=== PATIENT | female | born 1950 | race Caucasian/White ===

== ENCOUNTER 2020-05-26 09:27 | Emergency (ER) | payer MEDICARE, BC ==
[2020-05-26 10:32] LABS: #Basophils 0.1 thou/uL (0.0-0.2); #Eosinphils 0.1 thou/uL (0.0-0.7); #Lymphocytes 2.2 thou/uL (1.20-3.40); #Monocytes 1.1 thou/uL (0.11-0.59); #Neutrophils 7.2 thou/uL (1.40-6.50); %Basophils 0.6 % (0.0-1.0); %Eosinophils 1.1 % (0.0-10.0); %Lymphocytes 20.5 % (21.0-51.0); %Monocytes 9.9 % (0.0-10.0); Hemoglobin 14.6 g/dL (12.0-16.0); Mean Corpuscular HGB CONC 32.9 g/dL (32.0-36.0); Mean Corpuscular Hemoglobin 31.8 pg (27.0-31.0); Mean Corpuscular Volume 96.6 fL (78.0-98.0); Mean Platelet Volume 8.2 fL (7.4-10.4); Platelet Count 276 thou/uL (130-400); RBC Distribution Width 12.2 % (11.5-14.5); White Blood Cell (WBC) Count 10.7 thou/uL (4.8-10.8)
[2020-05-26 11:03] LABS: ALT (SGPT) 23 U/L (8-55); AST (SGOT) 18 U/L (5-34); Albumin 4.1 g/dL (3.4-4.8); Alkaline Phosphatase 77 U/L (40-110); Anion Gap 15 mmol/L (10-20); BUN (Urea Nitrogen) 33 mg/dL (9.8-20.1); Bilirubin, Total 0.6 mg/dL (0.2-1.2); Calc. Creatinine Clearance 0 mL/min (70-130); Carbon Dioxide 26 mmol/L (23-31); Chloride 102 mmol/L (98-107); Globulin 3.5 g/dL (2.4-3.5); Glucose 97 mg/dL (80-115); Potassium 3.8 mmol/L (3.5-5.1); Protein, Total 7.6 g/dL (6.0-8.3); Sodium 139 mmol/L (136-145)
== END 2020-05-26 14:00 | disposition home or self-care (01) ==
LOC: ERS 09:27
DX: L03.313 Cellulitis of chest wall (principal); I10 Essential (primary) hypertension; Z85.3 Personal history of malignant neoplasm of breast
CPT/HCPCS: 36415; 80053; 85025; 99283

== ENCOUNTER 2023-07-01 11:54 | Inpatient (IN) | payer MEDICARE, BC ==
[2023-07-01 13:44] LABS: #Basophils 0.1 thou/uL (0.0-0.2); #Eosinphils 0.1 thou/uL (0.0-0.7); #Neutrophils 8.2 thou/uL (1.40-6.50); %Basophils 1.1 % (0.0-1.0); %Eosinophils 0.9 % (0.0-10.0); %Lymphocytes 15.9 % (21.0-51.0); %Monocytes 9.1 % (0.0-10.0); %Neutrophils 71.7 % (42.0-75.0); Hematocrit 45.5 % (36.0-47.0); Hemoglobin 14.7 g/dL (12.0-16.0); Mean Corpuscular HGB CONC 32.3 g/dL (32.0-36.0); Mean Corpuscular Hemoglobin 30.4 pg (27.0-31.0); Mean Corpuscular Volume 94.2 fl (78.0-98.0); Mean Platelet Volume 10.5 fL (7.4-10.4); Platelet Count 206 10x3/uL (130-400); RBC Distribution Width 16.5 % (11.5-14.5); Red Blood Cell (RBC) Count 4.83 mill/uL (4.20-5.40); White Blood Cell (WBC) Count 11.4 10x3/uL (4.8-10.8)
[2023-07-01 14:17] LABS: Troponin I 0.011 ng/mL (< 0.028)
[2023-07-01 14:25] LABS: SARS-CoV-2 NAA Rapid Test Not Detected (NotDetected)
[2023-07-01 15:33] LABS: Bacteria/HPF 3+ HPF (None Seen); Bilirubin 1+ (Negative); Blood, Urine Negative (Negative); CAUTI Indications for Culture Alt mental st,lethar; Calcium Oxalate Crystals 3+ HPF (None Seen); Clarity Turbid (Clear); Glucose, Urine (Dipstick) Normal (Negative); Ketone, Urine Trace mg/dL (Negative); Leukocyte Negative Leu/uL (Negative); Nitrite 1+ (Negative); Protein, Urine (Dipstick) 10 mg/dL (Neg-Trace); RBC/HPF 0-3 HPF (0-3)
[2023-07-01 15:35] LABS: Urine Culture Reflex No No
[2023-07-01 16:08] LABS: Albumin 2.8 g/dL (3.4-4.8)
[2023-07-01 16:09] LABS: Chloride 100 mmol/L (98-107); Potassium 5.1 mmol/L (3.5-5.1); Sodium 129 mmol/L (136-145)
[2023-07-01 16:10] LABS: Glucose 63 mg/dL (83-110)
[2023-07-01 16:11] LABS: Globulin 6.6 g/dL (2.4-3.5); Protein, Total 9.4 g/dL (5.8-8.1)
[2023-07-01 16:12] LABS: Anion Gap 25 mmol/L (10-20); Bilirubin, Total 5.5 mg/dL (0.2-1.2)
[2023-07-01 16:13] LABS: Alkaline Phosphatase 738 U/L (40-110)
[2023-07-01 16:14] LABS: Calc. Creatinine Clearance 0 mL/min (70-130); Estimated GFR 28
[2023-07-01 16:15] LABS: BUN (Urea Nitrogen) 38 mg/dL (9.8-20.1)
[2023-07-01 16:16] LABS: ALT (SGPT) 259 U/L (8-55); AST (SGOT) 369 U/L (5-34); Carbon Dioxide 9 mmol/L (23-31); Critical Call Chemistry ERS.JAN @1616
[2023-07-01 16:17] LABS: Lipase 152 U/L (8-78)
[2023-07-01 18:39] LABS: Lactic Acid 3.5 mmol/L (0.5-2.2)
[2023-07-01] MEDS ORDERED: Ondansetron ODT 4 MG TAB PO PRN (18:52)
[2023-07-01 20:49] LABS: Albumin 3.1 g/dL (3.4-4.8); Anion Gap 16 mmol/L (10-20); BUN (Urea Nitrogen) 42 mg/dL (9.8-20.1); Calc. Creatinine Clearance 0 mL/min (70-130); Carbon Dioxide 20 mmol/L (23-31); Chloride 99 mmol/L (98-107); Estimated GFR 29; Glucose 71 mg/dL (83-110); Phosphorus 3.2 mg/dL (2.3-4.7); Potassium 4.5 mmol/L (3.5-5.1); Sodium 130 mmol/L (136-145)
[2023-07-01] MEDS: Sodium Chloride 0.9% 1,000 ML IV SCH (21:16)
[2023-07-01 21:40] LABS: Phosphorus 3.2 mg/dL (2.3-4.7); Salicylate Less than 8.0 mg/dL (15.0-30.0)
[2023-07-01] MEDS: Acetaminophen 325 MG TAB PO PRN (21:55)
[2023-07-01 22:11] LABS: Creatinine, Urine 141.51 mg/dL (47-110)
[2023-07-01 22:28] LABS: Actual Bicarbonate (HCO3v) 19.7 mEq/L (22-28); Base Excess -5.2 mEq/L (-2.0 to +3.0); Calcium, Ionized (venous) 1.45 mmol/L (1.16-1.32); Chloride (VBG) 99 mmol/L (98-106); Hematocrit-VBG 41 % (36.0-47.0); Hemoglobin (Hb) 13.8 g/dL (11.7-16.1); Potassium (VBG) 4.77 mmol/L (3.70-5.30); Sodium 134 mmol/L (133-146); pH (venous) 7.351 (7.32-7.43)
[2023-07-02 02:07] LABS: #Basophils 0.1 thou/uL (0.0-0.2); #Eosinphils 0.1 thou/uL (0.0-0.7); #Neutrophils 5.3 thou/uL (1.40-6.50); %Basophils 0.9 % (0.0-1.0); %Eosinophils 0.8 % (0.0-10.0); %Monocytes 12.7 % (0.0-10.0); %Neutrophils 66.8 % (42.0-75.0); Mean Corpuscular HGB CONC 33.7 g/dL (32.0-36.0); Mean Corpuscular Hemoglobin 31.1 pg (27.0-31.0); Mean Corpuscular Volume 92.2 fl (78.0-98.0); Mean Platelet Volume 10.6 fL (7.4-10.4); RBC Distribution Width 16.1 % (11.5-14.5); White Blood Cell (WBC) Count 7.9 10x3/uL (4.8-10.8)
[2023-07-02 02:09] LABS: Hematocrit 34.1 % (36.0-47.0); Hemoglobin 11.5 g/dL (12.0-16.0); Platelet Count 142 10x3/uL (130-400)
[2023-07-02 02:25] LABS: Albumin 2.5 g/dL (3.4-4.8); Anion Gap 18 mmol/L (10-20); BUN (Urea Nitrogen) 41 mg/dL (9.8-20.1); BUN/Creatinine Ratio 22.78; Calc. Creatinine Clearance 0 mL/min (70-130); Calcium 11.7 mg/dL (7.8-10.44); Carbon Dioxide 15 mmol/L (23-31); Chloride 102 mmol/L (98-107); Estimated GFR 29; Glucose 67 mg/dL (83-110); Phosphorus 3.2 mg/dL (2.3-4.7); Potassium 4.6 mmol/L (3.5-5.1); Sodium 130 mmol/L (136-145)
[2023-07-02 02:31] LABS: HBSAg Index 0.21 S/CO (0-0.99); Hep B Surf Ag Non-Reactive S/CO (NonReactive); Hep C IgG Ab Non-Reactive S/CO (NonReactive); Hep C Index 0.13 S/CO (0-0.79)
[2023-07-02 02:32] LABS: Hep A IgM AB Non-Reactive S/CO (NonReactive); Hep A IgM S/CO 0.13 S/CO (0-0.79)
[2023-07-02 02:33] LABS: HBCM Index 0.18 S/CO (0-0.79); Hepatitis B Core IgM Abs Non-Reactive S/CO (NonReactive)
[2023-07-02 02:34] LABS: HIV (1/2) Antibody/Antigen Non-Reactive (NonReactive); HIV 1/2 INDEX 0.17 S/CO (<1.00)
[2023-07-02 03:45] LABS: ALT (SGPT) 216 U/L (8-55); AST (SGOT) 320 U/L (5-34); Albumin 2.6 g/dL (3.4-4.8); Alkaline Phosphatase 647 U/L (40-110); Anion Gap 20 mmol/L (10-20); BUN (Urea Nitrogen) 40 mg/dL (9.8-20.1); Calc. Creatinine Clearance 0 mL/min (70-130); Calcium 11.5 mg/dL (7.8-10.44); Carbon Dioxide 14 mmol/L (23-31); Chloride 102 mmol/L (98-107); Estimated GFR 30; Globulin 5.1 g/dL (2.4-3.5); Glucose 66 mg/dL (83-110); Potassium 4.6 mmol/L (3.5-5.1); Protein, Total 7.7 g/dL (5.8-8.1); Sodium 131 mmol/L (136-145)
[2023-07-02] MEDS: Sodium Chloride 0.9% 1,000 ML IV SCH ×3 (05:45→20:52)
[2023-07-02] MEDS ORDERED: FLU VACC QS2023(65UP)/MF59C/PF 60 MCG/0.5 ML SYRINGE IM ONE (09:00)
[2023-07-02] MEDS: Enoxaparin 40 MG (0.4 mL) SYRINGE SC SCH (09:18)
[2023-07-02 10:32] LABS: Lactic Acid 2.7 mmol/L (0.5-2.2)
[2023-07-02 11:06] VITALS: BMI 29.7
[2023-07-02 11:32] LABS: Syphilis Antibody Nonreactive (Nonreactive); Syphilis Antibody Index 0.25 S/CO (<1.00 Non-Reactive)
[2023-07-02 18:17] LABS: Lactic Acid 2.8 mmol/L (0.5-2.2)
[2023-07-02] MEDS: Acetaminophen 325 MG TAB PO PRN (20:58)
[2023-07-03] MEDS: Sodium Chloride 0.9% 1,000 ML IV SCH ×4 (05:38→23:59)
[2023-07-03 06:08] LABS: #Basophils 0.1 thou/uL (0.0-0.2); #Eosinphils 0.2 thou/uL (0.0-0.7); #Monocytes 0.8 thou/uL (0.11-0.59); #Neutrophils 3.6 thou/uL (1.40-6.50); %Eosinophils 2.7 % (0.0-10.0); %Lymphocytes 20.4 % (21.0-51.0); %Monocytes 13.7 % (0.0-10.0); %Neutrophils 60.9 % (42.0-75.0); Hematocrit 32.1 % (36.0-47.0); Hemoglobin 10.8 g/dL (12.0-16.0); Mean Corpuscular HGB CONC 33.6 g/dL (32.0-36.0); Mean Corpuscular Hemoglobin 30.9 pg (27.0-31.0); Platelet Count 137 10x3/uL (130-400); RBC Distribution Width 16.5 % (11.5-14.5); Red Blood Cell (RBC) Count 3.49 mill/uL (4.20-5.40)
[2023-07-03 06:33] LABS: INR-International Normal Ratio 1.2; Prothrombin Time 15.1 sec (12.0-14.7)
[2023-07-03 06:38] LABS: ALT (SGPT) 200 U/L (8-55); AST (SGOT) 317 U/L (5-34); Albumin 2.4 g/dL (3.4-4.8); Alkaline Phosphatase 672 U/L (40-110); Anion Gap 14 mmol/L (10-20); BUN (Urea Nitrogen) 35 mg/dL (9.8-20.1); Bilirubin, Total 6.2 mg/dL (0.2-1.2); Calc. Creatinine Clearance 45 mL/min (70-130); Carbon Dioxide 19 mmol/L (23-31); Chloride 104 mmol/L (98-107); Estimated GFR 37; Glucose 77 mg/dL (83-110); Potassium 3.9 mmol/L (3.5-5.1); Protein, Total 7.4 g/dL (5.8-8.1); Sodium 133 mmol/L (136-145)
[2023-07-03] MEDS: Enoxaparin 40 MG (0.4 mL) SYRINGE SC SCH (09:11)
[2023-07-03] MEDS ORDERED: Polyethylene Glycol 3350 17 GM Packet PO PRN (09:16)
[2023-07-03 17:43] LABS: Lactic Acid 3.6 mmol/L (0.5-2.2)
[2023-07-03] MEDS: Acetaminophen 325 MG TAB PO PRN (21:15)
[2023-07-04 04:01] LABS: #Basophils 0.1 thou/uL (0.0-0.2); #Eosinphils 0.2 thou/uL (0.0-0.7); #Monocytes 0.7 thou/uL (0.11-0.59); #Neutrophils 3.4 thou/uL (1.40-6.50); %Basophils 1.4 % (0.0-1.0); %Eosinophils 3.6 % (0.0-10.0); %Lymphocytes 18.6 % (21.0-51.0); %Neutrophils 61.6 % (42.0-75.0); Hemoglobin 11.2 g/dL (12.0-16.0); Mean Corpuscular HGB CONC 33.9 g/dL (32.0-36.0); Mean Corpuscular Hemoglobin 30.7 pg (27.0-31.0); Mean Corpuscular Volume 90.4 fl (78.0-98.0); Mean Platelet Volume 10.9 fL (7.4-10.4); Platelet Count 115 10x3/uL (130-400); Red Blood Cell (RBC) Count 3.65 mill/uL (4.20-5.40); White Blood Cell (WBC) Count 5.5 10x3/uL (4.8-10.8)
[2023-07-04 04:48] LABS: Lactic Acid 2.6 mmol/L (0.5-2.2)
[2023-07-04 04:56] LABS: ALT (SGPT) 215 U/L (8-55); AST (SGOT) 335 U/L (5-34); Albumin 2.4 g/dL (3.4-4.8); Alkaline Phosphatase 663 U/L (40-110); Anion Gap 12 mmol/L (10-20); BUN (Urea Nitrogen) 28 mg/dL (9.8-20.1); Bilirubin, Total 7.5 mg/dL (0.2-1.2); Calc. Creatinine Clearance 51 mL/min (70-130); Carbon Dioxide 18 mmol/L (23-31); Chloride 105 mmol/L (98-107); Estimated GFR 44; Globulin 4.9 g/dL (2.4-3.5); Glucose 96 mg/dL (83-110); Iron 67 ug/dL (50-170); Iron Binding Capacity, Total 175 mcg/dL (265-497); Potassium 3.7 mmol/L (3.5-5.1); Protein, Total 7.3 g/dL (5.8-8.1); Sodium 131 mmol/L (136-145)
[2023-07-04] MEDS: Sodium Chloride 0.9% 1,000 ML IV SCH ×3 (08:41→17:27)
[2023-07-04] MEDS ORDERED: Letrozole 2.5 MG TAB PO SCH (12:00)
[2023-07-04 12:18] LABS: ANA Symphony (Qualitative) Negative (Negative); ANA Symphony (Quantitative) 0.4 Ratio (< 0.7 Negative); EliA Vaculitis New Method **** NEW METHOD ****; Mitochondrial Ab 2.2 U/mL (<4 Negative); dsDNA IgG Antibody 5.7 IU/mL (<10 Negative)
[2023-07-04] MEDS ORDERED: Zoledronic Acid 4 MG in Sodium Chloride 0.9% 100 ML IVPB SCH (15:30)
[2023-07-04 16:39] LABS: Albumin-Ur 20.6 % (.); Alpha 1 - Ur 6.6 % (.); Alpha 2 - Ur 12.6 % (.); Beta-Ur 24.3 % (.); Gamma-Ur 35.9 % (.); M-Spike,% Not Observed % (Not Observed); Protein, Urine 28.1 mg/dL (Not Estab.)
[2023-07-04 16:39] LABS: A/G Ratio 0.5 (0.7-1.7); Albumin 2.5 g/dL (2.9-4.4); Alpha 1 0.4 g/dL (0.0-0.4); Alpha 2 0.7 g/dL (0.4-1.0); Gamma 3.4 g/dL (0.4-1.8); Globulin, Total 5.5 g/dL (2.2-3.9); M-Spike Not Observed g/dL (Not Observed)
[2023-07-05] MEDS: Sodium Chloride 0.9% 1,000 ML IV SCH ×2 (05:52→20:38)
[2023-07-05 06:37] LABS: #Basophils 0.1 thou/uL (0.0-0.2); #Eosinphils 0.2 thou/uL (0.0-0.7); #Monocytes 0.8 thou/uL (0.11-0.59); #Neutrophils 4.1 thou/uL (1.40-6.50); %Basophils 0.9 % (0.0-1.0); %Eosinophils 2.7 % (0.0-10.0); %Lymphocytes 17.5 % (21.0-51.0); %Monocytes 12.8 % (0.0-10.0); %Neutrophils 64.5 % (42.0-75.0); Hematocrit 33.3 % (36.0-47.0); Hemoglobin 11.4 g/dL (12.0-16.0); Mean Corpuscular HGB CONC 34.2 g/dL (32.0-36.0); Mean Corpuscular Hemoglobin 31.2 pg (27.0-31.0); Mean Corpuscular Volume 91.2 fl (78.0-98.0); Mean Platelet Volume 10.5 fL (7.4-10.4); Platelet Count 144 10x3/uL (130-400); RBC Distribution Width 17.7 % (11.5-14.5); Red Blood Cell (RBC) Count 3.65 mill/uL (4.20-5.40); White Blood Cell (WBC) Count 6.3 10x3/uL (4.8-10.8)
[2023-07-05 07:11] LABS: ALT (SGPT) 217 U/L (8-55); AST (SGOT) 330 U/L (5-34); Albumin 2.4 g/dL (3.4-4.8); Alkaline Phosphatase 694 U/L (40-110); Anion Gap 12 mmol/L (10-20); BUN (Urea Nitrogen) 21 mg/dL (9.8-20.1); Bilirubin, Total 9.4 mg/dL (0.2-1.2); Calc. Creatinine Clearance 62 mL/min (70-130); Calcium 10.9 mg/dL (7.8-10.44); Carbon Dioxide 18 mmol/L (23-31); Chloride 107 mmol/L (98-107); Estimated GFR 55; Glucose 75 mg/dL (83-110); Potassium 3.9 mmol/L (3.5-5.1); Protein, Total 7.4 g/dL (5.8-8.1); Sodium 133 mmol/L (136-145)
[2023-07-05] MEDS: Letrozole 2.5 MG TAB PO SCH (08:54)
[2023-07-05] MEDS ORDERED: Heparin 5,000 UNITS/ML VIAL SC SCH (09:45)
[2023-07-05] MEDS: Heparin 5,000 UNITS/ML VIAL SC SCH ×2 (15:12→20:38)
[2023-07-06 07:33] LABS: #Basophils 0.1 thou/uL (0.0-0.2); #Eosinphils 0.2 thou/uL (0.0-0.7); #Monocytes 0.9 thou/uL (0.11-0.59); #Neutrophils 4.3 thou/uL (1.40-6.50); %Basophils 1.6 % (0.0-1.0); %Monocytes 12.1 % (0.0-10.0); %Neutrophils 61.9 % (42.0-75.0); Hematocrit 34.3 % (36.0-47.0); Hemoglobin 11.8 g/dL (12.0-16.0); Mean Corpuscular HGB CONC 34.4 g/dL (32.0-36.0); Mean Corpuscular Hemoglobin 30.8 pg (27.0-31.0); Mean Corpuscular Volume 89.6 fl (78.0-98.0); Mean Platelet Volume 10.8 fL (7.4-10.4); RBC Distribution Width 18.9 % (11.5-14.5); Red Blood Cell (RBC) Count 3.83 mill/uL (4.20-5.40)
[2023-07-06 07:36] LABS: Platelet Count 123 10x3/uL (130-400)
[2023-07-06 07:41] LABS: Lactic Acid 2.2 mmol/L (0.5-2.2)
[2023-07-06 07:49] LABS: ALT (SGPT) 215 U/L (8-55); AST (SGOT) 335 U/L (5-34); Albumin 2.3 g/dL (3.4-4.8); Alkaline Phosphatase 688 U/L (40-110); Anion Gap 15 mmol/L (10-20); BUN (Urea Nitrogen) 19 mg/dL (9.8-20.1); Calc. Creatinine Clearance 71 mL/min (70-130); Carbon Dioxide 15 mmol/L (23-31); Chloride 107 mmol/L (98-107); Estimated GFR 59; Glucose 87 mg/dL (83-110); Potassium 4.3 mmol/L (3.5-5.1); Protein, Total 7.3 g/dL (5.8-8.1); Sodium 133 mmol/L (136-145)
[2023-07-06] MEDS: Sodium Chloride 0.9% 1,000 ML IV SCH (08:45)
[2023-07-06] MEDS: Heparin 5,000 UNITS/ML VIAL SC SCH (08:46)
[2023-07-06] MEDS: Letrozole 2.5 MG TAB PO SCH (08:46)
[2023-07-07] MEDS: Letrozole 2.5 MG TAB PO SCH (08:26)
[2023-07-07 09:33] LABS: #Basophils 0.1 thou/uL (0.0-0.2); #Eosinphils 0.2 thou/uL (0.0-0.7); #Monocytes 0.9 thou/uL (0.11-0.59); #Neutrophils 4.4 thou/uL (1.40-6.50); %Basophils 1.3 % (0.0-1.0); %Eosinophils 2.6 % (0.0-10.0); %Lymphocytes 16.8 % (21.0-51.0); %Monocytes 12.5 % (0.0-10.0); %Neutrophils 65.3 % (42.0-75.0); Hematocrit 34.9 % (36.0-47.0); Hemoglobin 11.6 g/dL (12.0-16.0); Mean Corpuscular HGB CONC 33.2 g/dL (32.0-36.0); Mean Corpuscular Hemoglobin 31.3 pg (27.0-31.0); Mean Corpuscular Volume 94.1 fl (78.0-98.0); Mean Platelet Volume 10.8 fL (7.4-10.4); Platelet Count 134 10x3/uL (130-400); RBC Distribution Width 20.3 % (11.5-14.5); Red Blood Cell (RBC) Count 3.71 mill/uL (4.20-5.40); White Blood Cell (WBC) Count 6.8 10x3/uL (4.8-10.8)
[2023-07-07 11:36] LABS: Lactic Acid 2.1 mmol/L (0.5-2.2)
[2023-07-07 11:38] LABS: ALT (SGPT) 214 U/L (8-55); AST (SGOT) 339 U/L (5-34); Albumin 2.5 g/dL (3.4-4.8); Alkaline Phosphatase 709 U/L (40-110); Anion Gap 11 mmol/L (10-20); BUN (Urea Nitrogen) 20 mg/dL (9.8-20.1); Bilirubin, Total 13.4 mg/dL (0.2-1.2); Calc. Creatinine Clearance 72 mL/min (70-130); Calcium 9.6 mg/dL (7.8-10.44); Carbon Dioxide 19 mmol/L (23-31); Chloride 106 mmol/L (98-107); Estimated GFR 59; Glucose 83 mg/dL (83-110); Potassium 3.9 mmol/L (3.5-5.1); Protein, Total 7.5 g/dL (5.8-8.1); Sodium 132 mmol/L (136-145)
[2023-07-07 11:45] LABS: INR-International Normal Ratio 1.2; Prothrombin Time 14.7 sec (12.0-14.7)
[2023-07-07] MEDS ORDERED: Lidocaine 1% w/Epinephrine 1:100K 20 ML VIAL ONE (13:19)
[2023-07-07] MEDS ORDERED: Lidocaine 1% PF 5 ML VIAL ONE (13:19)
[2023-07-07] MEDS ORDERED: Midazolam HCl 2 mg/2 ml Vial ONE (13:19)
[2023-07-07] MEDS ORDERED: fentaNYL 50 mcg/mL 1 mL Vial ONE (13:19)
[2023-07-07] MEDS: Acetaminophen 325 MG TAB PO PRN (20:20)
[2023-07-08 05:09] LABS: #Basophils 0.1 thou/uL (0.0-0.2); #Eosinphils 0.2 thou/uL (0.0-0.7); #Monocytes 0.9 thou/uL (0.11-0.59); #Neutrophils 4.6 thou/uL (1.40-6.50); %Basophils 1.1 % (0.0-1.0); %Lymphocytes 19.1 % (21.0-51.0); %Neutrophils 63.1 % (42.0-75.0); Hematocrit 33.3 % (36.0-47.0); Hemoglobin 11.3 g/dL (12.0-16.0); Mean Corpuscular HGB CONC 33.9 g/dL (32.0-36.0); Mean Corpuscular Hemoglobin 31.1 pg (27.0-31.0); Mean Corpuscular Volume 91.7 fl (78.0-98.0); Mean Platelet Volume 10.1 fL (7.4-10.4); Platelet Count 137 10x3/uL (130-400); RBC Distribution Width 19.9 % (11.5-14.5); Red Blood Cell (RBC) Count 3.63 mill/uL (4.20-5.40); White Blood Cell (WBC) Count 7.2 10x3/uL (4.8-10.8)
[2023-07-08 05:36] LABS: ALT (SGPT) 199 U/L (8-55); AST (SGOT) 326 U/L (5-34); Albumin 2.4 g/dL (3.4-4.8); Alkaline Phosphatase 700 U/L (40-110); Anion Gap 10 mmol/L (10-20); BUN (Urea Nitrogen) 21 mg/dL (9.8-20.1); Bilirubin, Total 13.2 mg/dL (0.2-1.2); Calc. Creatinine Clearance 64 mL/min (70-130); Calcium 9.3 mg/dL (7.8-10.44); Carbon Dioxide 19 mmol/L (23-31); Chloride 107 mmol/L (98-107); Estimated GFR 51; Globulin 4.9 g/dL (2.4-3.5); Glucose 86 mg/dL (83-110); Potassium 3.8 mmol/L (3.5-5.1); Protein, Total 7.3 g/dL (5.8-8.1); Sodium 132 mmol/L (136-145)
[2023-07-08] MEDS: Letrozole 2.5 MG TAB PO SCH (08:08)
[2023-07-08 09:25] VITALS: TEMP 97.7
[2023-07-08] MEDS ORDERED: Enoxaparin 40 MG (0.4 mL) SYRINGE SC SCH (10:15)
[2023-07-08 18:24] VITALS: BP 123/78
[2023-07-09] MEDS ORDERED: Enoxaparin 40 MG (0.4 mL) SYRINGE SC SCH (09:00)
== END 2023-07-08 20:21 | DRG 436 ==
LOC: ERS 11:54 → 2SW 17:26 → OBSVTOIN 07-02 14:36 → MSONC 07-08 01:03
PROVIDERS: ADMIT Student in an Organized Health Care Education/Training Program; ATTEND Student in an Organized Health Care Education/Training Program
PROC: 4A043R1 Measurement of Venous Saturation, Peripheral, Percutaneous Approach (ICD-10-PCS; 2023-07-01)
PROC: 0FB13ZX Excision of Right Lobe Liver, Percutaneous Approach, Diagnostic (ICD-10-PCS; principal; 2023-07-07)
DX: C78.7 Secondary malignant neoplasm of liver and intrahepatic bile duct (principal); C78.01 Secondary malignant neoplasm of right lung; C79.51 Secondary malignant neoplasm of bone; E87.1 Hypo-osmolality and hyponatremia; N17.9 Acute kidney failure, unspecified; R17 Unspecified jaundice; E87.20 Acidosis, unspecified; C78.02 Secondary malignant neoplasm of left lung; Z51.5 Encounter for palliative care; Z66 Do not resuscitate; C50.912 Malignant neoplasm of unspecified site of left female breast; I10 Essential (primary) hypertension; I89.0 Lymphedema, not elsewhere classified; E83.52 Hypercalcemia; M17.9 Osteoarthritis of knee, unspecified; E80.6 Other disorders of bilirubin metabolism; D64.9 Anemia, unspecified; Z90.12 Acquired absence of left breast and nipple; Z79.899 Other long term (current) drug therapy; Z82.49 Family history of ischemic heart disease and other diseases of the circulatory system; Z11.52 Encounter for screening for COVID-19; E86.0 Dehydration
CPT/HCPCS: 36415; 47000; 71045; 71250; 74176; 76705; 77012; 78306; 80053; 80074; 80179; 81001; 82105; 82248; 82306; 82378; 82570; 82805; 83516; 83540; 83550; 83605; 83690; 83735; 83930; 83935; 83970; 84100; 84155; 84156; 84165; 84166; 84300; 84484; 84540; 85025; 85610; 86015; 86038; 86225; 86300; 86780; 87389; 88307; 88333; 88334; 88341; 88342; 93005; 96360; 96361; 96372; 80307; A9503; G0378; J1644; J1650; J2250; J3010; J3489; J3490; J7050

== ENCOUNTER 2023-08-01 12:34 | Inpatient (IN) | payer MEDICARE, BC ==
[2023-08-01 13:11] LABS: #Basophils 0.1 thou/uL (0.0-0.2); #Monocytes 1.4 thou/uL (0.11-0.59); #Neutrophils 12.8 thou/uL (1.40-6.50); %Basophils 0.6 % (0.0-1.0); %Eosinophils 0.1 % (0.0-10.0); %Lymphocytes 5.8 % (21.0-51.0); Hematocrit 33.5 % (36.0-47.0); Hemoglobin 11.3 g/dL (12.0-16.0); Mean Corpuscular HGB CONC 33.7 g/dL (32.0-36.0); Mean Corpuscular Hemoglobin 32.7 pg (27.0-31.0); Mean Corpuscular Volume 96.8 fl (78.0-98.0); Platelet Count 264 10x3/uL (130-400); RBC Distribution Width 17.4 % (11.5-14.5); Red Blood Cell (RBC) Count 3.46 mill/uL (4.20-5.40); White Blood Cell (WBC) Count 15.3 10x3/uL (4.8-10.8)
[2023-08-01] MEDS ORDERED: Ondansetron PF 4 MG/2 ML Vial ONE (13:15)
[2023-08-01] MEDS ORDERED: Furosemide 40 MG (4 mL) VIAL ONE (13:15)
[2023-08-01] MEDS ORDERED: Morphine 4 MG/ML VIAL ONE (13:15)
[2023-08-01 13:29] LABS: INR-International Normal Ratio 1.1; Prothrombin Time 14.5 sec (12.0-14.7)
[2023-08-01 13:30] LABS: PTT 37.8 sec (22.9-36.1)
[2023-08-01 14:01] LABS: ALT (SGPT) 50 U/L (8-55); AST (SGOT) 93 U/L (5-34); Albumin 2.8 g/dL (3.4-4.8); Alkaline Phosphatase 441 U/L (40-110); Anion Gap 12 mmol/L (10-20); BUN (Urea Nitrogen) 22 mg/dL (9.8-20.1); Bilirubin, Total 4.8 mg/dL (0.2-1.2); Calc. Creatinine Clearance 0 mL/min (70-130); Carbon Dioxide 18 mmol/L (23-31); Chloride 105 mmol/L (98-107); Estimated GFR 49; Globulin 4.7 g/dL (2.4-3.5); Glucose 104 mg/dL (83-110); Magnesium 1.8 mg/dL (1.6-2.6); Potassium 4.4 mmol/L (3.5-5.1); Protein, Total 7.5 g/dL (5.8-8.1); Sodium 131 mmol/L (136-145)
[2023-08-01 16:19] LABS: Bacteria/HPF 4+ HPF (None Seen); Bilirubin Negative (Negative); Blood, Urine Negative (Negative); CAUTI Indications for Culture Alt mental st,lethar; Clarity Turbid (Clear); Glucose, Urine (Dipstick) Normal (Negative); Ketone, Urine Negative (Negative); Leukocyte 250 Leu/uL (Negative); Nitrite Negative (Negative); Protein, Urine (Dipstick) Negative (Neg-Trace); RBC/HPF 0-3 HPF (0-3); Specific Gravity, Urine 1.013 (1.002-1.036); Urobilinogen Normal mg/dL (Less than 2)
[2023-08-01 16:24] LABS: Urine Culture Reflex Yes Yes
[2023-08-01] MEDS: cefTRIAXone\\ROCEPHIN 1 GM in Sodium Chloride 0.9% 100 ML IVPB SCH (18:31)
[2023-08-01] MEDS: Polyethylene Glycol 3350 17 GM Packet PO SCH (18:31)
[2023-08-01] MEDS: Furosemide 40 MG (4 mL) VIAL SLOW IVP SCH (19:34)
[2023-08-01] MEDS: Senokot S 8.6-50 MG TAB PO SCH (19:34)
[2023-08-01] MEDS: Naproxen 500 MG TAB PO SCH (21:26)
[2023-08-02] MEDS: Furosemide 40 MG (4 mL) VIAL SLOW IVP SCH (05:09)
[2023-08-02 06:51] LABS: #Basophils 0.1 thou/uL (0.0-0.2); #Eosinphils 0.1 thou/uL (0.0-0.7); #Neutrophils 7.3 thou/uL (1.40-6.50); %Basophils 0.5 % (0.0-1.0); %Eosinophils 0.6 % (0.0-10.0); %Lymphocytes 9.9 % (21.0-51.0); %Monocytes 10.7 % (0.0-10.0); %Neutrophils 77.6 % (42.0-75.0); Hemoglobin 8.4 g/dL (12.0-16.0); Mean Corpuscular HGB CONC 32.3 g/dL (32.0-36.0); Mean Corpuscular Hemoglobin 32.2 pg (27.0-31.0); Mean Corpuscular Volume 99.6 fl (78.0-98.0); Mean Platelet Volume 10.5 fL (7.4-10.4); Platelet Count 189 10x3/uL (130-400); RBC Distribution Width 17.3 % (11.5-14.5); Red Blood Cell (RBC) Count 2.61 mill/uL (4.20-5.40); White Blood Cell (WBC) Count 9.4 10x3/uL (4.8-10.8)
[2023-08-02 07:08] LABS: ALT (SGPT) 33 U/L (8-55); AST (SGOT) 65 U/L (5-34); Albumin 2.2 g/dL (3.4-4.8); Alkaline Phosphatase 310 U/L (40-110); Anion Gap 10 mmol/L (10-20); BUN (Urea Nitrogen) 24 mg/dL (9.8-20.1); Bilirubin, Total 3.3 mg/dL (0.2-1.2); Calc. Creatinine Clearance 55 mL/min (70-130); Calcium 7.7 mg/dL (7.8-10.44); Carbon Dioxide 20 mmol/L (23-31); Chloride 105 mmol/L (98-107); Estimated GFR 42; Globulin 4.1 g/dL (2.4-3.5); Glucose 150 mg/dL (83-110); Magnesium 1.7 mg/dL (1.6-2.6); Potassium 3.4 mmol/L (3.5-5.1); Protein, Total 6.3 g/dL (5.8-8.1); Sodium 132 mmol/L (136-145)
[2023-08-02] MEDS ORDERED: Docusate 100 MG CAP PO PRN (07:57)
[2023-08-02] MEDS: Potassium Chloride 20 MEQ TAB PO SCH (09:15)
[2023-08-02] MEDS: Enoxaparin 40 MG (0.4 mL) SYRINGE SC SCH (09:15)
[2023-08-02] MEDS: Polyethylene Glycol 3350 17 GM Packet PO SCH (09:15)
[2023-08-02 18:30] LABS: Hematocrit 28.6 % (36.0-47.0); Hemoglobin 9.5 g/dL (12.0-16.0)
[2023-08-03 06:35] LABS: #Eosinphils 0.1 thou/uL (0.0-0.7); #Monocytes 0.7 thou/uL (0.11-0.59); #Neutrophils 4.6 thou/uL (1.40-6.50); %Basophils 0.6 % (0.0-1.0); %Lymphocytes 13.3 % (21.0-51.0); %Monocytes 10.9 % (0.0-10.0); %Neutrophils 73.6 % (42.0-75.0); Hematocrit 26.5 % (36.0-47.0); Hemoglobin 8.6 g/dL (12.0-16.0); Mean Corpuscular HGB CONC 32.5 g/dL (32.0-36.0); Mean Corpuscular Volume 98.5 fl (78.0-98.0); Mean Platelet Volume 10.3 fL (7.4-10.4); Platelet Count 196 10x3/uL (130-400); RBC Distribution Width 17.1 % (11.5-14.5); Red Blood Cell (RBC) Count 2.69 mill/uL (4.20-5.40); White Blood Cell (WBC) Count 6.2 10x3/uL (4.8-10.8)
[2023-08-03 07:02] LABS: ALT (SGPT) 28 U/L (8-55); AST (SGOT) 57 U/L (5-34); Albumin 2.1 g/dL (3.4-4.8); Alkaline Phosphatase 286 U/L (40-110); Anion Gap 10 mmol/L (10-20); BUN (Urea Nitrogen) 29 mg/dL (9.8-20.1); Bilirubin, Total 2.9 mg/dL (0.2-1.2); Calc. Creatinine Clearance 56 mL/min (70-130); Calcium 7.9 mg/dL (7.8-10.44); Carbon Dioxide 21 mmol/L (23-31); Chloride 105 mmol/L (98-107); Estimated GFR 43; Globulin 3.9 g/dL (2.4-3.5); Glucose 88 mg/dL (83-110); Potassium 3.7 mmol/L (3.5-5.1); Sodium 132 mmol/L (136-145)
[2023-08-03] MEDS: Furosemide 40 MG (4 mL) VIAL SLOW IVP SCH (09:17)
[2023-08-04 04:45] LABS: #Basophils 0.1 thou/uL (0.0-0.2); #Eosinphils 0.1 thou/uL (0.0-0.7); #Monocytes 0.7 thou/uL (0.11-0.59); #Neutrophils 4.6 thou/uL (1.40-6.50); %Basophils 0.8 % (0.0-1.0); %Eosinophils 1.3 % (0.0-10.0); %Lymphocytes 14.1 % (21.0-51.0); %Monocytes 10.9 % (0.0-10.0); %Neutrophils 72.3 % (42.0-75.0); Hematocrit 27.8 % (36.0-47.0); Hemoglobin 9.1 g/dL (12.0-16.0); Mean Corpuscular HGB CONC 32.7 g/dL (32.0-36.0); Mean Corpuscular Hemoglobin 31.7 pg (27.0-31.0); Mean Corpuscular Volume 96.9 fl (78.0-98.0); Mean Platelet Volume 10.1 fL (7.4-10.4); Platelet Count 211 10x3/uL (130-400); RBC Distribution Width 16.8 % (11.5-14.5); Red Blood Cell (RBC) Count 2.87 mill/uL (4.20-5.40); White Blood Cell (WBC) Count 6.3 10x3/uL (4.8-10.8)
[2023-08-04 05:11] LABS: ALT (SGPT) 29 U/L (8-55); AST (SGOT) 63 U/L (5-34); Alkaline Phosphatase 312 U/L (40-110); Anion Gap 12 mmol/L (10-20); BUN (Urea Nitrogen) 31 mg/dL (9.8-20.1); Bilirubin, Total 2.2 mg/dL (0.2-1.2); Calc. Creatinine Clearance 51 mL/min (70-130); Calcium 7.7 mg/dL (7.8-10.44); Carbon Dioxide 21 mmol/L (23-31); Chloride 107 mmol/L (98-107); Estimated GFR 39; Globulin 4.2 g/dL (2.4-3.5); Glucose 92 mg/dL (83-110); Potassium 3.6 mmol/L (3.5-5.1); Protein, Total 6.2 g/dL (5.8-8.1); Sodium 136 mmol/L (136-145)
[2023-08-04] MEDS ORDERED: Acetaminophen 500 MG TAB PO PRN (11:22)
[2023-08-04] MEDS ORDERED: Furosemide 40 MG (4 mL) VIAL SLOW IVP SCH (21:00)
[2023-08-05 06:31] LABS: #Basophils 0.1 thou/uL (0.0-0.2); #Eosinphils 0.1 thou/uL (0.0-0.7); #Monocytes 0.7 thou/uL (0.11-0.59); #Neutrophils 3.9 thou/uL (1.40-6.50); %Basophils 1.2 % (0.0-1.0); %Eosinophils 2.4 % (0.0-10.0); %Lymphocytes 16.3 % (21.0-51.0); %Monocytes 12.1 % (0.0-10.0); %Neutrophils 67.3 % (42.0-75.0); Hematocrit 29.4 % (36.0-47.0); Hemoglobin 9.3 g/dL (12.0-16.0); Mean Corpuscular HGB CONC 31.6 g/dL (32.0-36.0); Mean Corpuscular Hemoglobin 31.7 pg (27.0-31.0); Mean Corpuscular Volume 100.3 fl (78.0-98.0); Mean Platelet Volume 10.8 fL (7.4-10.4); Platelet Count 182 10x3/uL (130-400); RBC Distribution Width 17.1 % (11.5-14.5); Red Blood Cell (RBC) Count 2.93 mill/uL (4.20-5.40); White Blood Cell (WBC) Count 5.8 10x3/uL (4.8-10.8)
[2023-08-05 07:02] LABS: ALT (SGPT) 27 U/L (8-55); AST (SGOT) 63 U/L (5-34); Albumin 2.1 g/dL (3.4-4.8); Alkaline Phosphatase 323 U/L (40-110); Anion Gap 12 mmol/L (10-20); BUN (Urea Nitrogen) 33 mg/dL (9.8-20.1); Bilirubin, Total 2.4 mg/dL (0.2-1.2); Calc. Creatinine Clearance 58 mL/min (70-130); Calcium 7.9 mg/dL (7.8-10.44); Carbon Dioxide 20 mmol/L (23-31); Chloride 106 mmol/L (98-107); Estimated GFR 48; Globulin 4.2 g/dL (2.4-3.5); Glucose 89 mg/dL (83-110); Potassium 3.8 mmol/L (3.5-5.1); Protein, Total 6.3 g/dL (5.8-8.1); Sodium 134 mmol/L (136-145)
[2023-08-05] MEDS: predniSONE 20 MG TAB PO SCH (08:36)
[2023-08-05] MEDS: Furosemide 40 MG (4 mL) VIAL SLOW IVP SCH (08:36)
[2023-08-06 05:29] LABS: #Monocytes 0.6 thou/uL (0.11-0.59); #Neutrophils 5.8 thou/uL (1.40-6.50); %Basophils 0.1 % (0.0-1.0); %Lymphocytes 12.2 % (21.0-51.0); %Neutrophils 78.9 % (42.0-75.0); Hematocrit 27.9 % (36.0-47.0); Hemoglobin 9.2 g/dL (12.0-16.0); Mean Corpuscular Hemoglobin 32.2 pg (27.0-31.0); Mean Corpuscular Volume 97.6 fl (78.0-98.0); Mean Platelet Volume 10.4 fL (7.4-10.4); Platelet Count 244 10x3/uL (130-400); RBC Distribution Width 16.7 % (11.5-14.5); Red Blood Cell (RBC) Count 2.86 mill/uL (4.20-5.40); White Blood Cell (WBC) Count 7.4 10x3/uL (4.8-10.8)
[2023-08-06 05:55] LABS: ALT (SGPT) 26 U/L (8-55); AST (SGOT) 63 U/L (5-34); Albumin 2.2 g/dL (3.4-4.8); Alkaline Phosphatase 334 U/L (40-110); Anion Gap 11 mmol/L (10-20); BUN (Urea Nitrogen) 36 mg/dL (9.8-20.1); Bilirubin, Total 2.3 mg/dL (0.2-1.2); Calc. Creatinine Clearance 60 mL/min (70-130); Calcium 7.9 mg/dL (7.8-10.44); Carbon Dioxide 22 mmol/L (23-31); Chloride 104 mmol/L (98-107); Estimated GFR 48; Globulin 4.2 g/dL (2.4-3.5); Glucose 149 mg/dL (83-110); Potassium 3.7 mmol/L (3.5-5.1); Protein, Total 6.4 g/dL (5.8-8.1); Sodium 133 mmol/L (136-145)
[2023-08-06] MEDS: Spironolactone 25 MG TAB PO SCH (09:32)
[2023-08-06] MEDS: Letrozole 2.5 MG TAB PO SCH (09:33)
[2023-08-06] MEDS: Empagliflozin 10 MG TAB PO SCH (09:34)
[2023-08-07 04:49] LABS: #Monocytes 0.7 thou/uL (0.11-0.59); #Neutrophils 6.5 thou/uL (1.40-6.50); %Basophils 0.1 % (0.0-1.0); %Lymphocytes 12.7 % (21.0-51.0); %Monocytes 8.7 % (0.0-10.0); %Neutrophils 77.5 % (42.0-75.0); Hematocrit 28.4 % (36.0-47.0); Hemoglobin 9.3 g/dL (12.0-16.0); Mean Corpuscular HGB CONC 32.7 g/dL (32.0-36.0); Mean Corpuscular Hemoglobin 32.2 pg (27.0-31.0); Mean Corpuscular Volume 98.3 fl (78.0-98.0); Mean Platelet Volume 10.3 fL (7.4-10.4); Platelet Count 247 10x3/uL (130-400); RBC Distribution Width 16.5 % (11.5-14.5); Red Blood Cell (RBC) Count 2.89 mill/uL (4.20-5.40); White Blood Cell (WBC) Count 8.4 10x3/uL (4.8-10.8)
[2023-08-07 05:16] VITALS: TEMP 97.8
[2023-08-07 05:43] LABS: ALT (SGPT) 34 U/L (8-55); AST (SGOT) 78 U/L (5-34); Albumin 2.3 g/dL (3.4-4.8); Alkaline Phosphatase 366 U/L (40-110); Anion Gap 13 mmol/L (10-20); BUN (Urea Nitrogen) 41 mg/dL (9.8-20.1); Bilirubin, Total 2.3 mg/dL (0.2-1.2); Calc. Creatinine Clearance 56 mL/min (70-130); Calcium 7.9 mg/dL (7.8-10.44); Carbon Dioxide 20 mmol/L (23-31); Chloride 105 mmol/L (98-107); Estimated GFR 45; Glucose 120 mg/dL (83-110); Potassium 3.9 mmol/L (3.5-5.1); Protein, Total 6.3 g/dL (5.8-8.1); Sodium 134 mmol/L (136-145)
[2023-08-07 09:36] VITALS: BMI 31.8
[2023-08-07 15:48] VITALS: BP 134/62
== END 2023-08-07 21:00 | DRG 553 ==
LOC: ERS 12:34 → ERHOLD 15:07 → T4-B 17:29 → 2NO 08-05 15:22
PROVIDERS: ADMIT Student in an Organized Health Care Education/Training Program; ATTEND Student in an Organized Health Care Education/Training Program
DX: M10.9 Gout, unspecified (principal); I50.31 Acute diastolic (congestive) heart failure; C78.7 Secondary malignant neoplasm of liver and intrahepatic bile duct; E87.1 Hypo-osmolality and hyponatremia; J98.11 Atelectasis; N17.9 Acute kidney failure, unspecified; N39.0 Urinary tract infection, site not specified; R18.8 Other ascites; I50.30 Unspecified diastolic (congestive) heart failure; I11.0 Hypertensive heart disease with heart failure; Z96.652 Presence of left artificial knee joint; K59.00 Constipation, unspecified; E88.09 Other disorders of plasma-protein metabolism, not elsewhere classified; Z66 Do not resuscitate; E87.6 Hypokalemia; D64.9 Anemia, unspecified; C50.919 Malignant neoplasm of unspecified site of unspecified female breast; Z90.49 Acquired absence of other specified parts of digestive tract; Z98.890 Other specified postprocedural states
CPT/HCPCS: 36415; 71045; 80053; 81001; 83735; 83880; 84550; 85025; 85610; 85730; 87077; 87086; 87186; 93005; 93306; 96374; 96375; J0696; J1650; J1940; J2270; J2405; J3490; J7512

== ENCOUNTER 2024-04-09 06:50 | Outpatient (CLI) | payer MEDICARE, BC ==
[2024-04-09] MEDS ORDERED: Iopamidol 370 76% 100 ML VIAL ONE (11:22)
== END 2024-04-09 06:51 | disposition home or self-care (01) ==
LOC: CT 06:50
PROVIDERS: ATTEND Internal Medicine Hematology & Oncology
DX: C50.112 Malignant neoplasm of central portion of left female breast (principal); J90 Pleural effusion, not elsewhere classified; R22.32 Localized swelling, mass and lump, left upper limb
CPT/HCPCS: 36415; 71260; 74177; 78306; 82565 ×2; A9503; Q9967

== ENCOUNTER 2024-07-14 12:09 | Outpatient (CLI) | payer MEDICARE, BC ==
[~2024-07-14 12:09] MED LIST: Iopamidol 370 76% 100 ML VIAL ONE
== END 2024-07-14 12:10 | disposition home or self-care (01) ==
LOC: CT 12:09
PROVIDERS: ATTEND Internal Medicine Hematology & Oncology
DX: C50.112 Malignant neoplasm of central portion of left female breast (principal); J90 Pleural effusion, not elsewhere classified; R18.8 Other ascites
CPT/HCPCS: 71260; 74177

== ENCOUNTER 2024-10-07 13:57 | Outpatient (CLI) | payer MEDICARE, BC | END 2024-10-07 13:58 | disposition home or self-care (01) | LOC: CT 13:57 | PROVIDERS: ATTEND Internal Medicine Hematology & Oncology | DX: C79.51 Secondary malignant neoplasm of bone (principal); C50.112 Malignant neoplasm of central portion of left female breast; C78.7 Secondary malignant neoplasm of liver and intrahepatic bile duct | CPT/HCPCS: 71260; 74177; 82565 ==

== ENCOUNTER 2025-04-19 09:22 | Inpatient (IN) | payer MEDICARE, BC ==
[2025-04-19] MEDS ORDERED: Iopamidol-370 76% 500 ML MDV (1 ML CHARGE) ONE (09:53)
[2025-04-19 10:23] LABS: Analyzer IN Cardio ER; Base Excess (BEa) -17.4 mEq/L (-2.0 to +3.0); CO2 Tension 49.9 mmHg (35.0-45.0); Calcium, Ionized (arterial) 0.99 mmol/L (1.12-1.30); Hematocrit-ABG 32 % (36.0-47.0); Hemoglobin (Hb) 11.0 g/dL (12.0-16.0); O2 Tension (PaO2), arterial 117.2 mmHg (> 70.0); Potassium - ABG Lab 4.51 mmol/L (3.70-5.30)
[2025-04-19 10:26] LABS: Actual Bicarbonate (HCO3a) 12.9 mEq/L (22-28); Puncture Site RB; pH, Arterial 7.031 (7.35-7.45)
[2025-04-19] MEDS ORDERED: VANCOMYCIN 2 GRAM/400 ML BAG ONE (10:38)
[2025-04-19 11:13] LABS: Hematocrit 31.6 % (36.0-47.0); Hemoglobin 9.6 g/dL (12.0-16.0); Mean Corpuscular Hemoglobin 35.3 pg (27.0-31.0); Mean Corpuscular Volume 116.2 fL (78.0-98.0); Platelet Count 171 10x3/uL (130-400); Red Blood Cell (RBC) Count 2.72 mill/uL (4.20-5.40); White Blood Cell (WBC) Count 29.95 10x3/uL (4.8-10.8)
[2025-04-19 11:14] LABS: INR-International Normal Ratio 1.6; Prothrombin Time 19.1 sec (12.0-14.7)
[2025-04-19 11:15] LABS: PTT 57.4 sec (22.9-36.1)
[2025-04-19 11:26] LABS: ALT (SGPT) 338 U/L (Less than 34); AST (SGOT) 490 U/L (11-34); Albumin 3.2 g/dL (3.1-4.5); Alkaline Phosphatase 332 U/L (40-110); Anion Gap 27 mmol/L (10-20); BUN (Urea Nitrogen) 59 mg/dL (9.8-20.1); Bilirubin, Total 2.4 mg/dL (0.3-1.2); Calc. Creatinine Clearance 0 mL/min (70-130); Calcium 7.2 mg/dL (7.8-10.44); Carbon Dioxide 14 mmol/L (23-31); Chloride 102 mmol/L (98-107); Globulin 2.2 g/dL (2.4-3.5); Glucose 191 mg/dL (83-110); Lipase 22 U/L (8-78); Potassium 4.7 mmol/L (3.5-5.1); Sodium 138 mmol/L (136-145)
[2025-04-19] MEDS ORDERED: CALCIUM GLUC 1 GM/NS 50 ML IV Bag ONE (11:50)
[2025-04-19 12:06] LABS: Anisocytosis SLIGHT = 6-15 cells HPF (0-5); Burr Cells SLIGHT = 2-5 cells HPF (0-1); Macrocytosis SLIGHT = 6-15 cells HPF (0-5); Platelet Adequacy Comment Platelets Normal; Poikilocytosis SLIGHT = 6-15 cells HPF (0-5); Polychromasia SLIGHT = 2-3 cells HPF (0-2); Schistocytes SLIGHT = 2-5 cells HPF (0-1); Smudge Cells 1.9 %
[2025-04-19 12:16] LABS: CAUTI Indications for Culture Alt mental st,lethar; Glucose, Urine (Dipstick) Normal (Negative); Leukocyte Negative Leu/uL (Negative); Protein, Urine (Dipstick) Negative (Neg-Trace); RBC/HPF 0-3 HPF (0-3); Specific Gravity, Urine 1.015 (1.002-1.036); WBC/HPF 0-3 HPF (0-3)
[2025-04-19 12:17] LABS: Bacteria/HPF Rare-Few HPF (None Seen)
[2025-04-19 12:18] LABS: Urine Culture Reflex No No
[2025-04-19] MEDS ORDERED: INSULIN REGULAR IN 0.9 % NACL 100 ML IVPB SCH (13:00)
[2025-04-19] MEDS ORDERED: Heparin 5,000 UNITS/ML VIAL ONE (15:56)
[2025-04-19] MEDS ORDERED: Bisacodyl 10 MG SUPP ONE (15:56)
[2025-04-19] MEDS ORDERED: Vancomycin Dose by Levels Sliding Scale (Wt 71-99) FS SCH (16:15)
[2025-04-19] MEDS: Heparin 5,000 UNITS/ML VIAL SC SCH (16:21)
[2025-04-19] MEDS: Bisacodyl 10 MG SUPP PR SCH (16:21)
[2025-04-19] MEDS ORDERED: Vasopressin In 0.9 % NaCl 100 ML ONE (17:39)
[2025-04-19] MEDS: Vasopressin In 0.9 % NaCl 100 ML IV SCH (17:44)
[2025-04-19] MEDS ORDERED: Norepinephrine 8 MG/0.9% NS 250 ML ONE (17:59)
[2025-04-19] MEDS ORDERED: Glycerin Pediatric Sup. (4ml) ONE (18:08)
[2025-04-19] MEDS: Glycerin Pediatric Sup. (4ml) PR SCH (18:14)
[2025-04-19] MEDS: NOREPINEPHRINE 8 MG/250 ML-D5W 250 ML IVPB PRN (18:15)
[2025-04-19] MEDS ORDERED: Ventilator Sedation Protocol 1 EACH FS SCH (20:14)
[2025-04-19] MEDS ORDERED: DISCONTINUE PREVIOUS NARCOTIC PAIN MEDICATIONS AND BENZODIAZEPINES FS SCH (20:15)
[2025-04-19] MEDS ORDERED: Fentanyl BOLUS 100 ML IVPB PRN (20:15)
[2025-04-19] MEDS ORDERED: Propofol BOLUS 1,000 MG/100 ML VIAL IV PRN (20:15)
[2025-04-19] MEDS ORDERED: Vancomycin 1 GM in Sodium Chloride 0.9% 250 ML 250 ML IVPB SCH (21:00)
[2025-04-19] MEDS: Mupirocin 1 GM TUBE NASAL DECOLONIZATION TP SCH (22:11)
[2025-04-19] MEDS: Norepinephrine 8 MG/0.9% NS 250 ML IVPB PRN (22:16)
[2025-04-19] MEDS: Sodium Bicarb 50 MEQ/50 ML Abboject 8.4% SYRINGE IVP SCH (22:39)
[2025-04-19 23:37] VITALS: BMI 30.7
[2025-04-20 04:12] VITALS: TEMP 97.1
[2025-04-20 04:38] VITALS: BP 76/52
[2025-04-20 05:02] LABS: Hematocrit 37.8 % (36.0-47.0); Hemoglobin 11.4 g/dL (12.0-16.0); Mean Corpuscular Hemoglobin 35.3 pg (27.0-31.0); Mean Corpuscular Volume 117.0 fL (78.0-98.0); Platelet Count 100 10x3/uL (130-400); Red Blood Cell (RBC) Count 3.23 mill/uL (4.20-5.40); White Blood Cell (WBC) Count 13.45 10x3/uL (4.8-10.8)
[2025-04-20] MEDS: Dextrose 50% Abboject 50 ML SYRINGE ONE (05:38)
[2025-04-20] MEDS ORDERED: Ondansetron PF 4 MG/2 ML Vial IVP PRN (05:40)
[2025-04-20] MEDS ORDERED: Glycopyrrolate 0.4 MG/ 2 ML VIAL SLOW IVP PRN (05:40)
[2025-04-20 06:09] LABS: Albumin 3.2 g/dL (3.1-4.5); Chloride 101 mmol/L (98-107); Potassium 5.8 mmol/L (3.5-5.1); Sodium 141 mmol/L (136-145)
[2025-04-20 06:10] LABS: Calcium 7.3 mg/dL (7.8-10.44); Glucose 16 mg/dL (83-110)
[2025-04-20 06:11] LABS: Globulin 2.0 g/dL (2.4-3.5)
[2025-04-20 06:12] LABS: Anion Gap 36 mmol/L (10-20); Carbon Dioxide 10 mmol/L (23-31)
[2025-04-20 06:13] LABS: Alkaline Phosphatase 286 U/L (40-110); Bilirubin, Total 4.3 mg/dL (0.3-1.2)
[2025-04-20 06:14] LABS: BUN (Urea Nitrogen) 58 mg/dL (9.8-20.1); Calc. Creatinine Clearance 27 mL/min (70-130)
[2025-04-20 06:16] LABS: ALT (SGPT) 2484 U/L (Less than 34)
[2025-04-20 06:25] LABS: AST (SGOT) Greater than 4001 U/L (11-34)
[2025-04-20 06:33] LABS: Anisocytosis MODERATE=16-30 cells HPF (0-5); Burr Cells MODERATE= 6-15 cells HPF (0-1); Macrocytosis MODERATE=16-30 cells HPF (0-5); Platelet Adequacy Comment Platelets Decreased; Poikilocytosis MODERATE=16-30 cells HPF (0-5); Polychromasia SLIGHT = 2-3 cells HPF (0-2); Schistocytes SLIGHT = 2-5 cells HPF (0-1); Smudge Cells 3.5 %
[2025-04-20] MEDS ORDERED: Letrozole 2.5 MG TAB PO SCH (09:00)
[2025-04-20] MEDS ORDERED: Famotidine/PF 20 mg/2ml Vial SLOW IVP SCH (09:00)
[2025-04-20] MEDS ORDERED: Mupirocin 1 GM TUBE NASAL DECOLOIZATION TP SCH (09:00)
== END 2025-04-20 07:06 | disposition expired | DRG 871 ==
LOC: ERS 09:22 → ERHOLD 12:22 → CCU 19:43
PROVIDERS: ADMIT Family Medicine; ATTEND Internal Medicine
PROC: 30233N1 Transfusion of Nonautologous Red Blood Cells into Peripheral Vein, Percutaneous Approach (ICD-10-PCS; principal; 2025-04-19)
PROC: 3E03329 Introduction of Other Anti-infective into Peripheral Vein, Percutaneous Approach (ICD-10-PCS; 2025-04-19)
PROC: 3E033XZ Introduction of Vasopressor into Peripheral Vein, Percutaneous Approach (ICD-10-PCS; 2025-04-19)
PROC: 30233J1 Transfusion of Nonautologous Serum Albumin into Peripheral Vein, Percutaneous Approach (ICD-10-PCS; 2025-04-19)
PROC: 0D9670Z Drainage of Stomach with Drainage Device, Via Natural or Artificial Opening (ICD-10-PCS; 2025-04-19)
PROC: 5A1935Z Respiratory Ventilation, Less than 24 Consecutive Hours (ICD-10-PCS; 2025-04-19)
PROC: 0BH17EZ Insertion of Endotracheal Airway into Trachea, Via Natural or Artificial Opening (ICD-10-PCS; 2025-04-19)
PROC: 0DH67UZ Insertion of Feeding Device into Stomach, Via Natural or Artificial Opening (ICD-10-PCS; 2025-04-19)
PROC: 06HY33Z Insertion of Infusion Device into Lower Vein, Percutaneous Approach (ICD-10-PCS; 2025-04-19)
PROC: 5A12012 Performance of Cardiac Output, Single, Manual (ICD-10-PCS; 2025-04-19)
PROC: 0T9B70Z Drainage of Bladder with Drainage Device, Via Natural or Artificial Opening (ICD-10-PCS; 2025-04-19)
PROC: 4A033R1 Measurement of Arterial Saturation, Peripheral, Percutaneous Approach (ICD-10-PCS; 2025-04-19)
PROC: 07HT33Z Insertion of Infusion Device into Bone Marrow, Percutaneous Approach (ICD-10-PCS; 2025-04-19)
DX: A41.9 Sepsis, unspecified organism (principal); J18.9 Pneumonia, unspecified organism; J96.01 Acute respiratory failure with hypoxia; R65.21 Severe sepsis with septic shock; R18.8 Other ascites; E87.20 Acidosis, unspecified; C78.7 Secondary malignant neoplasm of liver and intrahepatic bile duct; K59.39 Other megacolon; I50.32 Chronic diastolic (congestive) heart failure; Z66 Do not resuscitate; Z51.5 Encounter for palliative care; L89.152 Pressure ulcer of sacral region, stage 2; L89.621 Pressure ulcer of left heel, stage 1; L89.611 Pressure ulcer of right heel, stage 1; C50.912 Malignant neoplasm of unspecified site of left female breast; Z60.2 Problems related to living alone; Z92.21 Personal history of antineoplastic chemotherapy; Z98.890 Other specified postprocedural states; Z79.899 Other long term (current) drug therapy; Z85.3 Personal history of malignant neoplasm of breast; Z90.12 Acquired absence of left breast and nipple; K74.60 Unspecified cirrhosis of liver; Z78.1 Physical restraint status; I11.0 Hypertensive heart disease with heart failure
CPT/HCPCS: 31500; 36415; 36416; 36430; 36556; 51702; 70450; 71045; 71260; 74018; 74177; 80053; 81001; 82140; 82805; 83605; 83690; 83880; 85025; 85610; 85730; 86850; 86900; 86901; 86922; 87040; 93005; 94002; 94003; 96365; 96366; 96368; 96375; 96376; 99292; J0613; J1644; J2543; J3375; J7070; J7999; P9016; P9047; Q9967